=== PATIENT | female | born 1975 | race Caucasian/White ===

== ENCOUNTER 2016-12-25 00:57 | Inpatient (IN) | payer MEDICAID, OTHER ==
[~2016-12-25] VITALS: Ht 172.7 cm; Wt 89.0 kg
[~2016-12-25 00:57] MED LIST: NO MEDS
[2016-12-25 04:42] LABS: GLUCOSE,POINT OF CARE 129 MG/DL (70-110)
[2016-12-25] MEDS ORDERED: PIPERACILLIN/TAZO 3.375 GM/D5W 50 ML IV ONE ×2 (04:45→05:45)
[2016-12-25 05:01] LABS: GLUCOSE,POINT OF CARE 151 MG/DL (70-110)
[2016-12-25 05:03] LABS: BASOPHILS % (AUTO) 0.3 % (0.0-2.0); EOSINOPHILS % (AUTO) 2.5 % (1.0-6.0); HEMATOCRIT 37.3 % (36-46); HEMOGLOBIN 12.1 g/dL (12.0-16.0); LYMPHOCYTES # (AUTO) 3.8 K/uL (1.0-4.8); LYMPHOCYTES % (AUTO) 30.9 % (22.0-44.0); MEAN CORPUSCULAR HEMOGLOBIN 27.6 pg (26.0-34.0); MEAN CORPUSCULAR HGB CONC 32.4 G/dL (31.0-37.0); MEAN CORPUSCULAR VOLUME 85 fL (80-100); MONOCYTES # (AUTO) 0.6 K/uL (0.1-1.0); MONOCYTES % (AUTO) 5.1 % (2.0-9.0); NEUTROPHILS # (AUTO) 7.5 K/uL (1.8-7.7); NEUTROPHILS % (AUTO) 61.2 % (40.0-70.0); PLATELET COUNT (AUTO) 293 K/uL (150-450); RED BLOOD CELL COUNT(AUTO) 4.38 MIL/uL (4.00-5.20); RED CELL DISTRIBUTION WIDTH 13.4 % (11.5-14.5); WHITE BLOOD COUNT (AUTO) 12.3 K/uL (4.5-11.0)
[2016-12-25 05:22] LABS: LACTIC ACID 0.5 mmol/L (0.4-2.0)
[2016-12-25 05:26] LABS: ANION GAP 11 mmol/L (8-16); CALCIUM, TOTAL 8.9 mg/dL (8.8-10.5); CARBON DIOXIDE 26 mmol/L (22-29); CHLORIDE 103 mmol/L (98-107); CREATININE 0.68 mg/dL (0.60-1.30); GLOMERULAR FILTR. RATE CALC > 60 mL/min (>60); POTASSIUM 3.6 mmol/L (3.5-5.1); SODIUM SERUM 140 mmol/L (136-145); UREA NITROGEN, BLOOD 13 mg/dL (7-18)
[2016-12-25 05:31] LABS: ALANINE AMINOTRANSFERASE 20 U/L (12-78); ALBUMIN 3.4 g/dL (3.4-5.0); ASPARTATE AMINOTRANSFERASE 17 U/L (15-37); BILIRUBIN,TOTAL 0.4 mg/dL (0.1-1.0); TOTAL PROTEIN, SERUM 7.3 g/dL (6.4-8.2)
[2016-12-25] MEDS ORDERED: ACETAMINOPHEN 325 MG TABLET PO PRN ×2 (05:45→08:15)
[2016-12-25] MEDS ORDERED: 0.9% SODIUM CHLORIDE 10 ML SYRINGE IVP PRN (05:45)
[2016-12-25] MEDS ORDERED: ONDANSETRON HCL 4 MG/2 ML VIAL IVP PRN (05:45)
[2016-12-25 07:44] LABS: GLUCOSE,POINT OF CARE 113 MG/DL (70-110)
[2016-12-25 07:59] VITALS: BP 141/96
[2016-12-25] MEDS ORDERED: ALBUTEROL SULFATE 2.5 MG/0.5 ML NEB SOLUTION NEB PRN (08:15)
[2016-12-25] MEDS ORDERED: DEXTROSE 50%-WATER 25 GM/50 ML SYRINGE IVP PRN (08:15)
[2016-12-25] MEDS ORDERED: MAGNESIUM HYDROXIDE SUSPENSION 30 ML UDCUP PO PRN (08:15)
[2016-12-25] MEDS: DOCUSATE SODIUM 100 MG CAPSULE PO SCH ×2 (09:18→20:28)
[2016-12-25] MEDS: OxyCODONE HCL/ACETAMINOPHEN 5-325 MG TABLET PO PRN ×3 (09:19→20:54)
[2016-12-25] MEDS: PANTOPRAZOLE SODIUM 40 MG DR TABLET PO SCH (09:20)
[2016-12-25] MEDS: HEPARIN SODIUM,PORCINE 5,000 UNITS/ML VIAL SQ SCH ×2 (09:21→16:54)
[2016-12-25] MEDS ORDERED: INFLUENZA VIRUS VACCINE QVS 2016-17 (3YR+)/PF 60 MCG/0.5 ML SYRINGE IM ONE (10:45)
[2016-12-25] MEDS ORDERED: PNEUMOCOCCAL VACCINE POLYVALENT 0.5 ML VIAL [PPSV23] IM ONE (10:45)
[2016-12-25] MEDS ORDERED: SODIUM CHLORIDE 0.9% 250 ML IV ONE (10:47)
[2016-12-25] MEDS: CLINDAMYCIN 300 MG/D5% WATER 50 ML IV SCH ×2 (11:08→18:13)
[2016-12-25] MEDS: INSULIN ASPART 100 UNITS/ML SQ PRN ×2 (11:34→20:28)
[2016-12-25 11:42] LABS: GLUCOSE COMMENT 1 Received Meds; GLUCOSE,POINT OF CARE 142 MG/DL (70-110)
[2016-12-25 11:51] VITALS: BP 120/76
[2016-12-25 16:53] VITALS: BP 121/79
[2016-12-25 17:42] LABS: GLUCOSE,POINT OF CARE 137 MG/DL (70-110)
[2016-12-25 19:30] VITALS: BP 118/76
[2016-12-26] MEDS: HEPARIN SODIUM,PORCINE 5,000 UNITS/ML VIAL SQ SCH ×2 (00:01→08:33)
[2016-12-26 00:05] VITALS: BP 128/79
[2016-12-26] MEDS: CLINDAMYCIN 300 MG/D5% WATER 50 ML IV SCH ×2 (01:09→10:38)
[2016-12-26 04:30] VITALS: BP 120/78
[2016-12-26 05:01] LABS: GLUCOSE COMMENT 1 Received Meds; GLUCOSE,POINT OF CARE 144 MG/DL (70-110)
[2016-12-26] MEDS: INSULIN ASPART 100 UNITS/ML SQ PRN ×2 (05:42→11:36)
[2016-12-26 05:50] LABS: BASOPHILS % (AUTO) 0.4 % (0.0-2.0); EOSINOPHILS % (AUTO) 5.5 % (1.0-6.0); HEMATOCRIT 38.1 % (36-46); HEMOGLOBIN 12.2 g/dL (12.0-16.0); LYMPHOCYTES # (AUTO) 3.5 K/uL (1.0-4.8); LYMPHOCYTES % (AUTO) 42.9 % (22.0-44.0); MEAN CORPUSCULAR HEMOGLOBIN 27.6 pg (26.0-34.0); MEAN CORPUSCULAR VOLUME 86 fL (80-100); MONOCYTES # (AUTO) 0.4 K/uL (0.1-1.0); MONOCYTES % (AUTO) 5.3 % (2.0-9.0); NEUTROPHILS # (AUTO) 3.8 K/uL (1.8-7.7); NEUTROPHILS % (AUTO) 45.9 % (40.0-70.0); PLATELET COUNT (AUTO) 270 K/uL (150-450); RED BLOOD CELL COUNT(AUTO) 4.41 MIL/uL (4.00-5.20); RED CELL DISTRIBUTION WIDTH 13.3 % (11.5-14.5); WHITE BLOOD COUNT (AUTO) 8.3 K/uL (4.5-11.0)
[2016-12-26 06:27] LABS: GLUCOSE COMMENT 1 Received Meds; GLUCOSE,POINT OF CARE 158 MG/DL (70-110)
[2016-12-26 08:05] VITALS: BP 129/68
[2016-12-26] MEDS: DOCUSATE SODIUM 100 MG CAPSULE PO SCH (08:33)
[2016-12-26] MEDS: PANTOPRAZOLE SODIUM 40 MG DR TABLET PO SCH (08:33)
[2016-12-26 11:39] VITALS: BP 145/93
[2016-12-26 12:17] LABS: GLUCOSE COMMENT 1 Received Meds; GLUCOSE,POINT OF CARE 142 MG/DL (70-110)
[2016-12-26] MEDS ORDERED: METF500T4 PO (13:13)
[2016-12-26] MEDS ORDERED: CLIN300C3 PO (13:14)
== END 2016-12-26 14:30 | disposition home or self-care (01) | DRG 383 ==
LOC: EMS 00:59 → 6N 04:45
PROVIDERS: ADMIT Internal Medicine; ATTEND Internal Medicine
DX: L03.032 Cellulitis of left toe (principal); E11.9 Type 2 diabetes mellitus without complications; F12.90 Cannabis use, unspecified, uncomplicated; Z98.890 Other specified postprocedural states; Z86.32 Personal history of gestational diabetes
CPT/HCPCS: 82962; 83036; 83605; 87040; 90471; 93005; 96365; 99285; J1644; J2543; J3490; J7050

== ENCOUNTER 2017-06-08 23:22 | Emergency (ER) | payer OTHER ==
[~2017-06-08] VITALS: Ht 172.7 cm; Wt 77.3 kg
[~2017-06-08 23:22] MED LIST changes: +CLIN300C3 PO; +METF500T4 PO; -NO MEDS
[2017-06-08 23:52] LABS: GLUCOSE,POINT OF CARE 182 MG/DL (70-110)
[2017-06-09 00:21] VITALS: BP 135/81
[2017-06-09] MEDS ORDERED: KETOROLAC TROMETHAMINE 60 MG/2 ML VIAL IM ONE (01:00)
== END 2017-06-09 01:00 | disposition home or self-care (01) ==
LOC: EMS 23:23
DX: S30.0XXA Contusion of lower back and pelvis, initial encounter (principal); S60.222A Contusion of left hand, initial encounter; W01.0XXA Fall on same level from slipping, tripping and stumbling without subsequent striking against object, initial encounter; Y93.89 Activity, other specified; Y92.009 Unspecified place in unspecified non-institutional (private) residence as the place of occurrence of the external cause; Y99.8 Other external cause status
CPT/HCPCS: 82962; 96372; 99283; J1885

== ENCOUNTER 2017-07-05 08:07 | Emergency (ER) | payer OTHER ==
[~2017-07-05] VITALS: Ht 172.7 cm; Wt 72.0 kg
[2017-07-05] MEDS ORDERED: CefTRIAXone SODIUM 1 GM/VIAL IM ONE (09:15)
[2017-07-05] MEDS ORDERED: LIDOCAINE HCL/PF 1% 2 ML VIAL IM ONE (09:15)
[2017-07-05] MEDS ORDERED: PROMETHAZINE HCL/CODEINE 6.25-10MG/5ML SYRUP UDCUP PO ONE (09:15)
[2017-07-05] MEDS ORDERED: DEXAMETHASONE SOD PHOS 4 MG/ML 5 ML VIAL IM ONE (09:15)
[2017-07-05 10:05] VITALS: BP 137/93
[2017-07-05 11:54] LABS: GLUCOSE,POINT OF CARE 189 MG/DL (70-110)
== END 2017-07-05 10:41 | disposition home or self-care (01) ==
LOC: EMS 08:08
DX: J02.9 Acute pharyngitis, unspecified (principal)
CPT/HCPCS: 82962; 96372; 99284; J0696; J1100; J3490

== ENCOUNTER 2019-05-16 17:59 | Emergency (ER) | payer OTHER ==
[~2019-05-16] VITALS: Ht 172.7 cm; Wt 81.8 kg
[2019-05-16] MEDS ORDERED: IBUPROFEN 600 MG TABLET PO ONE (19:15)
[2019-05-16 20:51] VITALS: BP 141/92
[2019-05-18 08:28] LABS: GLUCOSE,POINT OF CARE 210 MG/DL (70-110)
== END 2019-05-16 21:07 | disposition home or self-care (01) ==
LOC: EMS 17:59
DX: S83.8X1A Sprain of other specified parts of right knee, initial encounter (principal); E11.9 Type 2 diabetes mellitus without complications; I10 Essential (primary) hypertension; F17.210 Nicotine dependence, cigarettes, uncomplicated; F12.90 Cannabis use, unspecified, uncomplicated; X50.1XXA Overexertion from prolonged static or awkward postures, initial encounter; Y93.89 Activity, other specified; Y92.89 Other specified places as the place of occurrence of the external cause; Y99.8 Other external cause status
CPT/HCPCS: 29505; 29530

== ENCOUNTER 2019-05-27 09:01 | Emergency (ER) | payer OTHER ==
[~2019-05-27] VITALS: Ht 160 cm; Wt 77.3 kg
[2019-05-27] MEDS ORDERED: SODIUM CHLORIDE 0.9% 1,000 ML IV ONE (09:45)
[2019-05-27] MEDS ORDERED: METOCLOPRAMIDE HCL 5 MG/ML 2 ML VIAL IVP ONE (09:45)
[2019-05-27 10:06] LABS: BASOPHILS % (AUTO) 0.3 % (0.0-2.0); EOSINOPHILS % (AUTO) 1.5 % (1.0-6.0); HEMATOCRIT 39.1 % (36-46); LYMPHOCYTES # (AUTO) 1.8 K/uL (1.0-4.8); LYMPHOCYTES % (AUTO) 22.4 % (22.0-44.0); MEAN CORPUSCULAR HEMOGLOBIN 28.7 pg (26.0-34.0); MEAN CORPUSCULAR HGB CONC 33.2 G/dL (31.0-37.0); MEAN CORPUSCULAR VOLUME 87 fL (80-100); MONOCYTES # (AUTO) 0.3 K/uL (0.1-1.0); MONOCYTES % (AUTO) 3.9 % (2.0-9.0); NEUTROPHILS # (AUTO) 5.9 K/uL (1.8-7.7); NEUTROPHILS % (AUTO) 71.9 % (40.0-70.0); PLATELET COUNT (AUTO) 263 K/uL (150-450); RED BLOOD CELL COUNT(AUTO) 4.53 MIL/uL (4.00-5.20); RED CELL DISTRIBUTION WIDTH 13.5 % (11.5-14.5)
[2019-05-27 10:16] LABS: CALCIUM, TOTAL 8.8 mg/dL (8.8-10.5); CARBON DIOXIDE 25 mmol/L (22-29); CHLORIDE 108 mmol/L (98-107); CREATININE 0.71 mg/dL (0.60-1.30); GLOMERULAR FILTR. RATE CALC > 60 mL/min (>60); GLUCOSE,RANDOM 182 mg/dL (70-110); UREA NITROGEN, BLOOD 18 mg/dL (7-18)
[2019-05-27 10:25] LABS: ANION GAP 7 mmol/L (8-16); POTASSIUM 3.7 mmol/L (3.5-5.1); SODIUM SERUM 140 mmol/L (136-145)
[2019-05-27 10:27] LABS: ALANINE AMINOTRANSFERASE 14 U/L (12-78); ALBUMIN 3.2 g/dL (3.4-5.0); ALKALINE PHOSPHATASE 81 U/L (46-116); ASPARTATE AMINOTRANSFERASE 14 U/L (15-37); BILIRUBIN,TOTAL 0.3 mg/dL (0.1-1.0); HCG,QUANTITATIVE < 1 mIU/mL (0-6); TOTAL PROTEIN, SERUM 6.4 g/dL (6.4-8.2)
[2019-05-27 11:36] VITALS: BP 116/72
== END 2019-05-27 11:57 | disposition home or self-care (01) ==
LOC: EMS 09:02
DX: R11.2 Nausea with vomiting, unspecified (principal); E11.9 Type 2 diabetes mellitus without complications; I10 Essential (primary) hypertension; F17.210 Nicotine dependence, cigarettes, uncomplicated; F12.90 Cannabis use, unspecified, uncomplicated
CPT/HCPCS: 36415; 80053; 84702; 85025; 96361; 96374; 99283; 99406; J2765; J7030

== ENCOUNTER 2019-06-04 00:20 | Emergency (ER) | payer OTHER ==
[~2019-06-04] VITALS: Ht 172.7 cm; Wt 81.8 kg
[2019-06-04 00:36] LABS: GLUCOSE,POINT OF CARE 196 MG/DL (70-110)
[2019-06-04 01:00] VITALS: BP 141/74
[2019-06-04] MEDS ORDERED: NEOMYCIN/POLYMYXIN B/HYDROCORT 10 ML OTIC SOLUTION AS ONE (01:30)
== END 2019-06-04 01:42 | disposition home or self-care (01) ==
LOC: EMS 00:21
DX: H60.92 Unspecified otitis externa, left ear (principal); E11.9 Type 2 diabetes mellitus without complications; I10 Essential (primary) hypertension; F17.210 Nicotine dependence, cigarettes, uncomplicated; F12.90 Cannabis use, unspecified, uncomplicated; Z59.0 Homelessness

== ENCOUNTER 2019-08-20 19:05 | Emergency (ER) | payer OTHER ==
[~2019-08-20] VITALS: Ht 172.7 cm; Wt 86.4 kg
[2019-08-20] MEDS ORDERED: KETOROLAC TROMETHAMINE 60 MG/2 ML VIAL IM ONE (22:00)
[2019-08-20 23:20] VITALS: BP 123/78
== END 2019-08-20 23:33 | disposition home or self-care (01) ==
LOC: EMS 19:09
DX: S70.01XA Contusion of right hip, initial encounter (principal); F17.210 Nicotine dependence, cigarettes, uncomplicated; I10 Essential (primary) hypertension; E11.9 Type 2 diabetes mellitus without complications; F12.90 Cannabis use, unspecified, uncomplicated; V27.4XXA Motorcycle driver injured in collision with fixed or stationary object in traffic accident, initial encounter; Y93.89 Activity, other specified; Y92.89 Other specified places as the place of occurrence of the external cause; Y99.8 Other external cause status
CPT/HCPCS: 73502; 81025; 96372; 99283; J1885

== ENCOUNTER 2020-06-12 11:50 | Emergency (ER) | payer OTHER ==
[~2020-06-12] VITALS: Ht 170.2 cm; Wt 84.1 kg
[2020-06-12] MEDS ORDERED: KETOROLAC TROMETHAMINE 60 MG/2 ML VIAL IM ONE (13:30)
[2020-06-12] MEDS ORDERED: AMOX TR/POT CLAV 875 MG/125 MG TABLET PO ONE (13:30)
[2020-06-12] MEDS ORDERED: CLINDAMYCIN HCL 150 MG CAPSULE PO ONE (13:30)
[2020-06-12 13:35] VITALS: BP 131/88
== END 2020-06-12 14:15 | disposition home or self-care (01) ==
LOC: EMS 11:53
DX: H00.034 Abscess of left upper eyelid (principal); E11.9 Type 2 diabetes mellitus without complications; I10 Essential (primary) hypertension; F17.210 Nicotine dependence, cigarettes, uncomplicated; F12.90 Cannabis use, unspecified, uncomplicated
CPT/HCPCS: 70480; 96372; 99284; J1885